=== PATIENT | male | born 1930 | race African-American/Black ===

== ENCOUNTER 2018-03-07 14:37 | Inpatient (IN) | payer OTHER ==
[~2018-03-07] VITALS: Ht 172.7 cm; Wt 60.7 kg
--- NOTE | ~2018-03-07 | P ---
[facility] [place] [address] PROCEDURE REPORT Name: YVES BALDERAS Room #: 208-P [facility] IN M.R.#: [id number] Admission: 03/07/18 Attend Phys: Alfonso Elliott Discharge: Date of : 32 Report #: [id number] THIS REPORT FOR: //name// CC: VINCENZO Elliott BRIEF HISTORY: The patient is an 87-year-old male who presented with atypical chest pain. He also has a history of reflux disease and previous antireflux surgery in [place]. He has complaints of recurrent solid food dysphagia as well. PREOPERATIVE DIAGNOSES: 1. Atypical chest pain. 2. Dysphagia. POSTOPERATIVE DIAGNOSES: 1. Moderate diffuse gastritis, small amount of retained bile, stomach. 2. Evidence of previous Tonja fundoplication, Intact. 3. Small 1-2 cm sliding type hiatus hernia. MEDICATIONS: Deep sedation with propofol per anesthesia. SPECIMEN: Biopsies of gastritis. ESTIMATED BLOOD LOSS: 3 mL. PROCEDURE: EGD with biopsy and dilation of esophagus over wire. FINDINGS: Prior to propofol sedation, procedure of upper endoscopy was discussed with the patient as well as potential risks and its complications. He indicates he understands and desire that we proceed. DESCRIPTION OF PROCEDURE: With the patient in left lateral decubitus position, an Olympus video endoscope was inserted in the cervical esophagus under direct vision without difficulty. Examination of this organ through its entire length revealed normal esophageal mucosa down the squamocolumnar junction. Squamocolumnar junction was intact and without evidence of ulcer or erosive changes. There is no evidence of Mireles mucosa. A definite stricture was not seen. He was noted to have a very small 1-2 cm sliding type hiatus hernia. Mucosa in the hernia was unremarkable. The scope was advanced in the stomach and was examined on end view as well as retroflexed views. There was a pattern of diffuse gastritis was erythematous and somewhat edematous mucosa; however, the mucosa was intact and no ulcers or erosions were seen. Biopsies were obtained. There was also noted to be a small amount of retained bilious material in the stomach. Upon retroflexion, no mass lesions were seen. However, he was noted to have changes consistent with a previous Tonja [facility] [address] [place] [address] PROCEDURE REPORT Name: YVES BALDERAS Room #: [address] [place] [address] IN M.R.#: [id number] Admission: 03/07/18 Attend Phys: Alfonso Elliott Discharge: Date of : 32 Report #: [id number] fundoplication. The pylorus, duodenal bulb, and postbulbar duodenal sweep were all inspected and noted to be unremarkable. At that point, the scope was slowly withdrawn and careful circumferential views were obtained. Due to his dysphagia, dilation was planned. We initially attempted to pass a 52-Algerian Pate dilator. However, it hung up at the level of the GE junction, would not pass. Therefore, this dilator was withdrawn. The endoscope was then reinserted back to the pylorus. The guidewire was advanced through the biopsy channel of the scope and the scope was withdrawn over the wire. Subsequently, he was dilated with a 51-Algerian Savary dilator over the wire without any difficulty. DISPOSITION: The patient with complaints of dysphagia. Definite stricture or ring was not seen. He was empirically dilated as noted above. He is to return for dilation on an as needed basis due to recurrence symptoms. As far as his chest pain, I do not see any mucosal disease, but he does obviously have a history of reflux disease and has had previous surgery. PPI such as pantoprazole would be reasonable. He does have bile in the stomach, addition of sucralfate may be helpful. By: 1250 [id number] Payam Bates MD /nt
[~2018-03-07 14:37] MED LIST: NORCO 5-325 TA1 EACH PO
[2018-03-07 14:45] VITALS: BP 147/86
[2018-03-07 15:12] LABS: HEMATOCRIT 34.8 % (42.0-52.0); HEMOGLOBIN 11.5 gm/dL (14.0-18.0); MCH 24.8 pg (26.0-34.0); MCHC 32.9 g/dL (28.0-37.0); MCV 75.5 fL (80.0-100.0); PLATELET COUNT 208 thou/uL (150-400); RBC 4.61 mil/uL (4.50-6.00); WBC 5.9 thou/uL (4.0-11.0)
[2018-03-07 15:21] LABS: ANION GAP 8 mmol/L (7-16); BUN 17 mg/dL (7-18); CALCIUM 9.4 mg/dL (8.5-10.1); CHLORIDE 105 mmol/L (98-107); CO2 27 mmol/L (21-32); CREATININE 1.7 mg/dL (0.7-1.3); GLUCOSE 75 mg/dL (74-106); POTASSIUM 4.2 mmol/L (3.5-5.1); SODIUM 140 mmol/L (136-145)
[2018-03-07 15:26] LABS: BE(vivo) -2.7 mmol/L (-2 to +3); HCO3 22.6 mmol/L (22.0-26.0); PCO2 VENOUS 40.8 mmHg (41.0-51.0); PO2 VENOUS 60.4 mmHg (35.0-45.0)
[2018-03-07 15:30] LABS: ALBUMIN 3.3 g/dL (3.4-5.0); SGOT 23 U/L (15-37); SGPT 18 U/L (30-65); TOTAL BILIRUBIN 0.5 mg/dL (<0.1-1.0); TOTAL PROTEIN 6.7 g/dL (6.4-8.2); TROPONIN-I <0.06 ng/mL (<0.06)
[2018-03-07 15:51] LABS: ABSOLUTE NEUTROPHILS 3.1 thou/uL (1.4-8.2)
[2018-03-07 15:53] LABS: HYPOCHROMASIA 1+; MICROCYTES 2+
[2018-03-07 18:34] VITALS: BP 147/86
[2018-03-07 18:44] LABS: CHOLESTEROL 174 mg/dL (<200); HDL CHOLESTEROL 64 mg/dL (>40); LDL CHOLESTEROL 99 mg/dL (<100); TC:HDL 2.7 Ratio (Not establshd); TRIGLYCERIDE 55 mg/dL (<150); VLDL 11 mg/dL (<40)
[2018-03-07 18:50] VITALS: BP 147/80
[2018-03-07] MEDS ORDERED: VENTOLIN HFA 1818 GM INH (19:26)
[2018-03-07] MEDS ORDERED: AZITHROMYCIN 2250 MG PO (19:26)
[2018-03-07] MEDS ORDERED: DILTIAZEM 24HR180 M1 PO (19:26)
[2018-03-07] MEDS ORDERED: SYMBICORT160 MCG/4. INH (19:26)
[2018-03-07] MEDS ORDERED: IPRAT-ALBUT 0.5-3 ML INH (19:27)
[2018-03-07] MEDS ORDERED: FLONASE 0.05%50 MCG NASAL (19:27)
[2018-03-07] MEDS ORDERED: PREDNISONE 10 M10 MG PO (19:28)
[2018-03-07] MEDS ORDERED: DUREZOL5 ML OPHTHALMIC (19:29)
[2018-03-07] MEDS ORDERED: PROTONIX40 M1 PO (19:30)
[2018-03-07] MEDS ORDERED: FLOMAX0.4 MG PO (19:30)
[2018-03-07] MEDS ORDERED: TRAMADOL 50 MG50 MG PO (19:30)
[2018-03-07 20:25] VITALS: BP 121/48
[2018-03-08 00:09] VITALS: BP 123/70
--- NOTE | 2018-03-08 04:09 | NUR ---
PT ARRIVED ON UNIT ABOUT 1999. ALERT AND ORIENTED. C/O MINIMAL CHEST PAIN THAT HE HAD PAIN MEDS FROM ED AND WAS FEELING BETTER. C/O SOA, O2 > 95 ON RA. RT NOTIFIED, BREATHING TREATMENT DONE. PT REFUSED TO TAKE BP MEDICATION , METOPROLOL , BECAUSE HE SAYS, " I DO NOT TAKE BP MEDICATIONS AT HOME.". WILL CONTINUE TO FOLLOW POC.
[2018-03-08 04:36] VITALS: BP 109/70
[2018-03-08 07:33] VITALS: BP 116/69
[2018-03-08] MEDS ORDERED: SPIRIVA RESPIMAT4 G1 INH (08:29)
[2018-03-08 17:50] VITALS: BP 182/105
[2018-03-08 18:43] VITALS: BP 163/101
[2018-03-08 20:33] VITALS: BP 152/93
--- NOTE | 2018-03-08 20:35 | NUR ---
PATIENT VSS THROUGH SHIFT UNTIL 1600 VITALS. BP ELEVATED IN 180'S WITH PAIN IN CHEST REPORTED BY PATIENT. PHYSICIAN NOTIFIED, ORDERS RECEIVED & CARRIED THROUGH. PATIENT REPORTS RELIEF FROM PAIN & BP DECREASED WITH MEDICATION ADMINISTRATION. PATIENT UP AD ISABEL WITH STEADY GAIT. REMAINS ON ROOM AIR WITH O2 SATS >97%.
--- NOTE | 2018-03-08 22:08 | EKG ---
[address] [address] ELECTROCARDIOGRAM REPORT Name: YVES BALDERAS Room #: 207-P ADM IN M.R.#: [id number] Admission: 03/07/18 Attend Phys: Alfonso Elliott Discharge: Date of : 32 Report #: [id number] THIS REPORT FOR: //name// [facility] ED Test Date: 2018-03-07 Test Time: 14:49:03 Pat Name: YVES BALDERAS Department: Room: 207 Gender: M Systems Security Consultant: AUBREY : 1930 Requested By: Rekha Tierney Order Number: [id number] MD: Andrea Goode Measurements Intervals [place] Rate: 82 P: 49 NM: 186 QRS: -1 QRSD: 76 T: 56 QT: 364 QTc: 425 Interpretive Statements Sinus rhythm Anteroseptal infarct, age indeterminate No previous ECG available for comparison Electronically Signed On 03-08-2018 22:08:30 ROLL FINISHER by Andrea Goode [email or web address] <ELECTRONICALLY SIGNED> By: Andrea Goode MD 03/08/18 2208 1449 1449 Andrea Goode MD /HONORIO
--- NOTE | 2018-03-08 22:24 | EKG ---
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
[2018-03-09] VITALS (8 sets, daily range): BP systolic 140–192; BP diastolic 75–108
[2018-03-09 03:51] LABS: CALCIUM 8.9 mg/dL (8.5-10.1); CREATININE 1.7 mg/dL (0.7-1.3); PHOSPHORUS 2.3 mg/dL (2.5-4.9); POTASSIUM 5.1 mmol/L (3.5-5.1)
--- NOTE | 2018-03-09 05:55 | NUR ---
ASSESSMENT DOCUMENTED. COMPLAINT OF PAIN ON THE BACK GOING DOWN BOTH LEGS. PRN MEDS GIVEN WHICH AFFORDED SOME RELIEF. FF UP POC.
[2018-03-09] MEDS ORDERED: ASPIR 8181 MG PO (09:27)
[2018-03-09] MEDS ORDERED: PREDNISONE 20 M20 MG PO (09:28)
[2018-03-09] MEDS ORDERED: DOXYCYCLINE 10100 MG PO (09:28)
[2018-03-09] MEDS ORDERED: NITROGLYCERIN0.4 MG SUBLING (10:00)
[2018-03-09] MEDS ORDERED: HYDROCODON-ACE1 EAC7 PO (10:00)
--- NOTE | 2018-03-09 18:00 | NUR ---
Pt anxious during first half of shift. Pt anxious about having stress test and not feeling well. Pt has reported discomfort in his legs, burning sensation in epigastric region, discomfort in substernal region post meal. Pt also concerned about his blood pressure. Pt did not want to discharge to home while blood pressure elevated. Dr Elliott was notified and additional medications started-see MAR. Discharge placed on hold for today. GI consult obtained. Pt dozed for brief period after pain pill (Tramadol). Slow progress toward goals.
--- NOTE | 2018-03-10 03:34 | NUR ---
AOX4. SR ON THE MONITOR. CLEAR LUNG SOUNDS. DIMINISHED ON THE BASES. ON ROOM AIR. IV ON THE RIGHT FOREARM, INTACT AND FLUSHES WELL. COMPLAINT OF PAIN FROM THE RIGHT UPPER QUADRANT OF THE ABDOMEN GOING TO THE MID LOWER BACK DOWN TO BILATERAL LEGS, PAIN SCORE 10/10. PRN MEDS FOR PAIN GIVEN WHICH AFFORDED PARTIAL RELIEF. FF UP POC.
[2018-03-10 04:36] VITALS: BP 150/82
[2018-03-10 08:00] VITALS: BP 148/77
[2018-03-10 12:00] VITALS: BP 140/72
[2018-03-10 14:15] VITALS: BP 149/77
--- NOTE | 2018-03-10 14:27 | NUR ---
VSS REMAINS NSR. LUNGS CLEAR RA. C/O INTERMITTENT STOMACH PAIN AFTER EATING ALSO BILATERAL LEG PAIN RELIEVED WITH PRN TRAMODOL. UP IN ROOM WIHTOUT C/O . PT ED RE NPO PAST MN AND NO CAFFIENNE FOR TST /EGD AM/. WILL CONTINUE TO MONITER AND CARE FOR PT PER PLAN OF CARE
[2018-03-10 16:45] VITALS: BP 155/88
--- NOTE | 2018-03-10 20:06 | NUR ---
PT IS ALERT AND ORIENTED X 4. STATES THAT HE HAS CHRONIC LEG PAIN. AT HOME HE TAKES TRAMADOL FOR THIS PAIN. THE PATIENT STATES THAT HE ALWAYS TAKES THIS MEDICATION BEFORE BED. THE PATIENT UNDERSTANDS THAT HE IS TO BE NPO AT MIDNIGHT FOR AN EGD/STRESS TEST TOMORROW. VOICES THIS UNDERSTANDING. NO OTHER CONCERNS NOTED. THE PATIENT'S SELF REPORTED GOAL THIS EVENING IS TO REST. ASSESSMENT CHARTED. CHART UPDATED. CALL LIGHT WITHIN REACH. BED IS LOW AND LOCKED. RECORDS REQUESTED FROM [facility] AGAIN THEY HAVE NOT YET BEEN RECEIVED. WILL CONTINUE TO MONITOR.
[2018-03-10 20:15] VITALS: BP 147/76
[2018-03-10 20:37] LABS: WBC 12.4 thou/uL (4.0-11.0)
[2018-03-10 20:39] LABS: HEMOGLOBIN 10.9 gm/dL (14.0-18.0); MCH 24.9 pg (26.0-34.0); MCHC 33.1 g/dL (28.0-37.0); MCV 75.4 fL (80.0-100.0); RBC 4.38 mil/uL (4.50-6.00); RDW 18.3 % (10.5-14.5)
[2018-03-10 20:45] LABS: CALCIUM 8.8 mg/dL (8.5-10.1); CREATININE 1.7 mg/dL (0.7-1.3); POTASSIUM 4.8 mmol/L (3.5-5.1)
[2018-03-10 20:51] LABS: APTT 24.7 Seconds (24.5-32.8); INR 1.1; PROTIME 11.4 Seconds (9.3-11.4)
[2018-03-11 04:37] VITALS: BP 133/67
[2018-03-11 07:05] VITALS: BP 153/81
[2018-03-11 13:00] VITALS: BP 163/81
--- NOTE | 2018-03-11 13:41 | NUR ---
ASSUMED JUDI AT SHIFT CHANGE, C/O SOB AND PATIENT O2 SAT 95% AND BREATHING IS REGULAR AND BREATHING TX GIVEN PER RT. STRESS TEST COMPLETED , GI LAB CALLED AND SPOKE WITH DANTE AND PATIENT WILL IS SCHEDULE TOMORROW PER DANTE. BP AT 162/82 AM MEDS GIVEN AND WILL CONTINUE TO MONITOR PATIENT BRAYAN.
[2018-03-11 15:04] VITALS: BP 144/77
[2018-03-11 19:12] LABS: % SATURATION 4 % (20-39); IRON 15 ug/dL (65-175); TIBC 344 ug/dL (250-450)
[2018-03-11 20:15] VITALS: BP 139/79
[2018-03-12] VITALS (15 sets, daily range): BP systolic 103–160; BP diastolic 52–91
--- NOTE | 2018-03-12 05:54 | NUR ---
PT. C/O EPIGASTRIC PAIN; LIVESTOCK COUNTER CONTATED, ONE TIME PO PANTOPRAZOLE GIVEN PER ORDER; PT. ST NO DECREASED EPIGASTRIC PAIN; PRN MEDICATION GIVEN; REASSESSMENT PT. SLEEPING; AT MORNING PT. C/O EPIGASTRIC PAIN, 12/17, LIVESTOCK COUNTER CONTACTED TO OBTAIN ONE TIME IV PANTOPRAZOLE AT MORNING, PT NPO AFTER MIDNIGHT FOR POSSIBLE EGD;
--- NOTE | 2018-03-12 16:14 | NUR ---
CM ASSESSMENT: CASE OPENED FOR DC PLANNING. CLINICAL INFO REVIEWED. PT ADMIT WITH CHEST PAIN, DYSPHAGIA, EPIGASTRIC PAIN. CATH TODAY WITH RECOMMENDATION FOR MEDICAL MANAGEMENT AND PLANS FOR EGD IN AM. PT SLEEPING WHEN CM CAME TO SEE. CALLED PT'S SISTER/SPOKESPERSON EMILY ANTOINE. SHE REPORTS PT LIVES IN APT WITH ELEVATOR ACCESS, IS INDEPENDENT WITH ADL.IADLS, DRIVES. NO USE OF DME OR HH. PER RN, MOBILITY SAFE IN ROOM. SISTER INDICATES PT STAYS WITH HER SOMETIMES WELL. SISTER NOT ABLE TO PROVIDE TRANSPORT AT DC AND GIVES PT'S DTR DONG BARAJAS [phone] CONTACT FOR RIDE HOME AT DISCHARGE. CM AVAILABLE TO ASSIST WITH ANY DC NEEDS.
--- NOTE | 2018-03-12 18:19 | NUR ---
ASSUMED CARE AT SHIFT CHANGED, ALERT AND ORIENTED X4. SR ON THE MONITOR. PATIENT CATHED TODAY, RT GRION D/C/I. VS CHARTED. C/O CP -08/17 MDICATED INDICATED. AND WILL CONTINUE WITH POC.
[2018-03-13] VITALS (8 sets, daily range): BP systolic 126–170; BP diastolic 63–94
[2018-03-13 04:40] LABS: CALCIUM 8.7 mg/dL (8.5-10.1); CREATININE 1.6 mg/dL (0.7-1.3); POTASSIUM 4.9 mmol/L (3.5-5.1)
--- NOTE | 2018-03-13 05:29 | NUR ---
PT. C/O LATE AT NIGHT, PRN PAIN MEDICATION GIVEN; WALKED X1 BEFORE SLEEPING; ABLE TO REST DURING THE NIGHT; NO BM; PASSING GAS.
--- NOTE | 2018-03-13 05:31 | NUR ---
PT. C/O BACK PAIN DURING THE NIGHT; PRN PAIN MEDICATON GIVEN; C/O CONSTIPATION PLUM JUICE GIVEN; ANXIOUS; ABLE TO REST AFTER PEN SLEEP MEDICATION GIVEN. NO BLEEDING FROM R. GROIN AREA. ASSESSMENT CHARGED.
[2018-03-13] MEDS ORDERED: ATORVASTATIN CA40 MG PO (09:19)
--- NOTE | 2018-03-13 12:46 | NUR ---
PT OFF FLOOR TO EGD AT 1134.
--- NOTE | 2018-03-14 03:17 | NUR ---
PT ALERT AND ORIENTED. DENIES CHEST PAIN OR SOB. HAD AN EGD DONE YESTERDAY. LUNG SOUNDS CLEAR AND DIMINISHED. NO NOTABLE RESPIRATORY DISTRESS. ANTICIPATED TO DC TODAY. WILL CONTINUE TO FOLLOW POC
[2018-03-14 04:49] VITALS: BP 147/76
[2018-03-14 07:45] VITALS: BP 140/73
[2018-03-14] MEDS ORDERED: CARAFATE 1 GM TA1 G1 PO (08:59)
[2018-03-14 09:12] VITALS: BP 174/87
[2018-03-14 09:40] VITALS: BP 174/87
--- NOTE | 2018-03-14 11:40 | NUR ---
ASSUMED CARE OF PT AT 0700. PT DISCHARGED HOME TO SELF CARE THIS SHIFT. ALERT AND ORIENTED X4. DENIED PAIN AND SOA. VSS. UP WITH STEADY GAIT. DISCHARGE INFO REVIEWED WITH PT PRIOR TO DISMISSAL AND HE DENIES QUESTIONS OR CONCERNS REGARDING VS, LABS, F/U APPTS, DISCHARGE MEDS, DIET, ACTIVITY AND GENERAL POST HOSPITAL CARE. IV OUT, TELE BOX OFF. PT'S SON PRESENT TO PROVIDE TRANSPORTATION HOME.
--- NOTE | 2018-03-17 11:08 | PATH ---
[facility] [address] [place] [address] PATHOLOGY RPT PROCEDURE Name: DANIEL BALDERAS Room #: 208-P DIS IN M.R.#: [id number] Admission: 03/07/18 Date of : 32 Discharge: 03/14/18 Report #: [id number] Path Case #: [id number] [facility] Accession Number: [id number] . 01 Material submitted: . GASTRITIS . 01 Clinical history: . Epigastric pain, dysphagia, chest pain Gastritis, hiatus hernia, previous Charisse Rule out H. pylori . 02 Diagnosis: Gastric mucosa, gastritis rule out H. pylori, endoscopic biopsy: - Moderate reactive gastropathy. - Negative for intestinal metaplasia or atrophy. - Negative for Helicobacter pylori (properly controlled immunohistochemical stain performed). (IUV:pit 03/16/2018) QTP/03/16/2018 . 02 Electronically signed: . Lisa Ortiz MD, Pathologist NPI- [id number] . 01 Gross description: . The specimen is received in formalin, labeled "Daniel Balderas, gastritis biopsy" and consists of multiple fragments of soft pink-harvey tissue measuring 1.1 x 1.0 x 0.2 cm in aggregate which are entirely submitted in A1. (SDY; 03/13/2018) SYU/SYU . 02 Pathologist provided ICD-10: K31.9 . 02 CPT . 348894, E03933 Specimen Comment: A courtesy copy of this report has been sent to Specimen Comment: [phone], . Specimen Comment: Report sent to / DR ROUSE Specimen Comment: A duplicate report has been generated due to demographic updates. Performed at: 01 [facility] [address] [id number] MD Esau Grewal MD Phone: [phone] [facility] [address] [place] [address] PATHOLOGY RPT PROCEDURE Name: DANIEL BALDERAS Room #: 208-[facility] IN M.R.#: [id number] Admission: 03/07/18 Date of : 32 Discharge: 03/14/18 Report #: [id number] Path Case #: [id number] Performed at: 02 [facility] [address] [id number] MD Lisa Ortiz MD Phone: [phone]
--- NOTE | 2018-03-17 12:22 | CATHLAB ---
[facility] [address] [place] [address] INVASIVE PROCEDURE REPORT Name: YVES BALDERAS Room #: 208-P DIS IN M.R.#: [id number] Admission: 03/07/18 Attend Phys: Alfonso Flores Discharge: 03/14/18 Date of : 32 Date of Service: 03/17/18 1222 Report #: [id number] THIS REPORT FOR: //name// APPROVED REPORT Study performed: 03/12/2018 11:59:28 Patient Details Patient Status: In-Patient Room #: The patient is a 87 year-old male Event Personnel Jae Moura Foreign Language Instructor, Lisandra Dejesus Sandifer, David Monitor, [place] RN, Kylah Brooks RTR, INDUSTRIAL ECOLOGIST Monitor Procedures Performed Left Heart Cath w/or w/o Coronaries [id number] [facility], supervision of conscious sedation Indication Chest pain Procedure Narrative The Right Groin^ was infiltrated with 1% Lidocaine subcutaneous anesthesia. A PINNACLE 4FR Sheath #[id number] sheath was inserted into the RFA^. Coronary angiography was performed using coronary diagnostic catheters. The right coronary system was accessed and visualized with a JR4 catheter. The left coronary system was accessed and visualized with a JL4 catheter. The left ventricle was accessed and visualized with a PIGTAIL catheter. Left ventricular/Aortic Valve gradient assessed via catheter pullback. Hemostasis was obtained with manual pressure following sheath removal without any complications. There was no hematoma. Intraoperative Conscious Sedation Sedation start time: 13.00 Case end Time: 13.28 Versed 3 mg Fluoro Time: 258.00 minutes Dose: DAP 1825.70 cGycm2 258 mGy Contrast Type and Amount: Omnipaque 50 ml Coronary Angiography [facility] [address] [place] [address] INVASIVE PROCEDURE REPORT Name: ANDREYYVES Room #: 208-P [facility] IN ..#: [id number] Admission: 03/07/18 Attend Phys: Alfonso Flores Discharge: 03/14/18 Date of : 32 Date of Service: 03/17/18 1222 Report #: [id number] The patient's coronary anatomy is right dominant. Diagnostic Cath Left Main moderate to large caliber vesssel bifurcates into lad and lcx vessels. mild distal tapering noted. no obstructive lesions LAD moderate caliber type 2 vessel. mild ostial narrowing which is insignificant. courses in the anterioe interventricular sulcus giving rise to small diagonal and septal branches. mild luminal irregularities are noted in its course. no significant obstructive lesions present Diagonal 1 small caliber no significant lesions Diagonal 2 diminutive caliber free of significant lesions Circumflex moderate caliber vessel with an early marginal vs ramus branch. there is a non flow limiting lesion proximally of approximately 50%. it continues posteriorly giving rise to a small posterior branch with luminal irregularities OM1 small caliber non flow limiting Right Coronary moderate caliber vessel of normal origin with a proximal eccentric tapering lesion of between 50-60%. the vessel continues posteriorly giving rise to a small pda and posterior lv branch. no high grade obstructive lesions noted R PDA small caliber without high grade lesions RPLV small caliber vessel with significant obstructive lesions but with luminal irregularities Ramus no significant obstructive lesions Left Ventriculography Left Ventriculography was not performed. Hemodynamics The aortic pressure is 170/93 mmHg with a mean of 125 mmHg. The left ventricular pressure is 179/12 mmHg with a mean of mmHg. The left ventricular end diastolic pressure is 32 mmHg. There was no gradient across the aortic valve upon pullback. Pullback from the left ventricle to the aorta revealed no gradient across the aortic valve. Conclusion 1. Coronary artery disease, two vessel, moderate 2. normal hemodynakics Recommendations [facility] [address] [place] [address] INVASIVE PROCEDURE REPORT Name: YVES BALDERAS Room #: 208-P [facility] IN M.R.#: [id number] Admission: 03/07/18 Attend Phys: Alfonso Flores Discharge: 03/14/18 Date of : 34 Date of Service: 03/17/18 1222 Report #: [id number] Cardiac Risk Reduction Program Aggressive Medical Therapy <ELECTRONICALLY SIGNED> By: Jae Moura MD 03/17/18 1222 21 21 Jae Moura MD /INF
== END 2018-03-14 11:30 | disposition home or self-care (01) | DRG 206 ==
LOC: ER 14:37 → 2N 18:11 → EROBS 18:11 → 2N 18:55
PROVIDERS: Internal Medicine; Internal Medicine Gastroenterology; Student in an Organized Health Care Education/Training Program; ADMIT Hospitalist
PROC: B2111ZZ Fluoroscopy of Multiple Coronary Arteries using Low Osmolar Contrast (ICD-10-PCS; 2018-03-12)
PROC: 4A023N7 Measurement of Cardiac Sampling and Pressure, Left Heart, Percutaneous Approach (ICD-10-PCS; 2018-03-12)
PROC: 0D758ZZ Dilation of Esophagus, Via Natural or Artificial Opening Endoscopic (ICD-10-PCS; principal; 2018-03-13)
PROC: 0DB68ZX Excision of Stomach, Via Natural or Artificial Opening Endoscopic, Diagnostic (ICD-10-PCS; principal; 2018-03-13)
DX: M94.0 Chondrocostal junction syndrome [Tietze] (principal); J44.1 Chronic obstructive pulmonary disease with (acute) exacerbation; R13.10 Dysphagia, unspecified; K21.9 Gastro-esophageal reflux disease without esophagitis; N18.3 Chronic kidney disease, stage 3 (moderate); E78.5 Hyperlipidemia, unspecified; N40.0 Benign prostatic hyperplasia without lower urinary tract symptoms; D50.9 Iron deficiency anemia, unspecified; I12.9 Hypertensive chronic kidney disease with stage 1 through stage 4 chronic kidney disease, or unspecified chronic kidney disease; I25.10 Atherosclerotic heart disease of native coronary artery without angina pectoris; I48.0 Paroxysmal atrial fibrillation; K29.70 Gastritis, unspecified, without bleeding; K44.9 Diaphragmatic hernia without obstruction or gangrene; K21.0 Gastro-esophageal reflux disease with esophagitis; Z90.49 Acquired absence of other specified parts of digestive tract; Z79.82 Long term (current) use of aspirin; Z79.899 Other long term (current) drug therapy
CPT/HCPCS: 10081; 62110; 62900